=== PATIENT | male | born 1965 | race Caucasian/White ===

== ENCOUNTER 2020-06-12 06:19 | Day surgery (SDC) | payer BC, OTHER ==
[~2020-06-12] VITALS: Ht 190.5 cm; Wt 100.0 kg
[~2020-06-12 06:19] MED LIST: FLONASE ALLERG9.9 ML NAS
[2020-06-12] MEDS ORDERED: LOSARTAN POTASS50 MG PO (06:38)
--- NOTE | 2020-06-12 07:57 | NUR ---
06/12/20 [address] 0754-PATIENT ARRIVED TO PACU ON 2L NC RR EVEN. PATIENT AWAKE DROWSY DENIES PAIN OR NAUSEA. LAYING LEFT LATERAL. ABDOMEN SOFT ENCOURAGED TO PASS GAS. IVF INFUSING. PATIENT DOZES TO SLEEP.
--- NOTE | 2020-06-12 08:40 | NUR ---
PT ALERT, ORIENTED AND SUPPORTED BY HIS JONNIE. PT IS HERE FOR HIS FIRST SCOPE, PREP WAS RATHER UNEVENTFUL FOR HIM. BECAUSE OF FAMILY HISTORY PT HAS DECIDED TO BE PROACTIVE IN HIS HEALTH CARE. ALL QUESTIONS ASKED ANSWERED. HAD PRAYER WTH PT, JONNIE WILL WAIT IN RM. WILL FOLLOW NEEDED
--- NOTE | 2020-06-13 07:43 | OR ---
[facility] [address], [place] [address] Signed DATE OF OPERATION: 06/12/2020 SURGEON: Faith Azar MD PREOPERATIVE DIAGNOSIS: Screening. POSTOPERATIVE DIAGNOSES: 1. 3 mm lesion on ileocecal valve. 2. 6 mm pedunculated polyp at 22 cm (sigmoid colon). 3. 10 mm pedunculated polyp at 18 cm/rectum (snare). PROCEDURE: Colonoscopy snare polypectomy and hot biopsy. ESTIMATED BLOOD LOSS: None. INDICATIONS: Hermelindo is a 54-year-old gentleman asked to see me for his initial screening colonoscopy. He has no lower GI complaints. There is no family history of colon cancer or polyps. In the office, I gave Hermelindo a pamphlet on colonoscopy. We had reviewed the nature of the test. He understands there is risk including, but not limited to gas bloating, crampy abdominal pain, bleeding, perforation requiring surgery, and missed diagnosis. We also reviewed the need for IV conscious sedation. He had expressed understanding and wished to proceed. PROCEDURE NOTE: Hermelindo was taken into our endoscopy suite and placed in the left lateral decubitus position. He was given a total of 7 mg of Versed and 100 mcg of fentanyl to cover the case. We did notice that he woke up quickly on two occasions. He does consume two or three beers every day after work. Nevertheless, he was comfortable throughout the procedure. A digital rectal exam was performed and this was unremarkable. The adult colonoscope had been introduced and advanced all around into the cecum under direct visualization of camera without difficulty. His prep was quite excellent. We could easily see the appendiceal orifice and the ileocecal valve. We took pictures throughout for photodocumentation. He had a 3 mm light-colored sessile lesion on the ileocecal valve. It was easily removed and destroyed completely with hot biopsy forceps. The scope was then slowly withdrawn. There was no diverticulosis. We used our hot biopsy forceps to remove the polyp up at 22 cm. We then used our snare to remove the polyp at Electronically Signed By: FAITH AZAR MD 06/13/20 0743 PATIENT NAME: HERMELINDO GALINDO OPERATIVE REPORT DATE OF : 65 REPORT #: [id number] PHYSICIAN: FAITH AZAR MD PCP: LEODAN EDWARDS MD REPORT IS CONFIDENTIAL AND NOT TO BE RELEASED WITHOUT AUTHORIZATION [facility] [address] [place] [id number] Signed 18 cm and suctioned it on the scope and removed it for pathologic review. The rest of the rectum was unremarkable. Upon retroflexion of scope, there was no additional pathology noted above the anal canal. After this, the gas was suctioned out. The colonoscope removed. Hermelindo tolerated the procedure quite well. RECOMMENDATIONS: I will see Hermelindo back in my office in 7 to 14 days to review his results. Faith Azar MD ALB/MODL /[id number] cc: MD Leodan Herrera MD Copies: FAITH AZAR MD, ROBERT D DMD ~ Electronically Signed By: FAITH AZAR MD 06/13/20 0743 PATIENT NAME: HERMELINDO GALINDO OPERATIVE REPORT DATE OF : 65 REPORT #: [id number] PHYSICIAN: FAITH AZAR MD PCP: LEODAN EDWARDS MD REPORT IS CONFIDENTIAL AND NOT TO BE RELEASED WITHOUT AUTHORIZATION
--- NOTE | 2020-06-13 17:04 | PATH ---
[facility] [address], [place] [address] Signed SPECIMEN(S): A ILEOCECAL VALVE POLYP SPECIMEN(S): B COLON POLYP 22 CM SPECIMEN(S): C RECTAL POLYP 18 CM SPECIMEN SOURCE: A. ILEOCECAL VALVE POLYP B. COLON POLYP 22 CM C. RECTAL POLYP 18 CM CLINICAL HISTORY: Screening. Post op: Polyps x 3. Colonoscopy. MICROSCOPIC DESCRIPTION: Histologic sections of all submitted blocks are examined by light microscopy. These findings, together with the gross examination, support the pathologic diagnosis. FINAL PATHOLOGIC DIAGNOSIS: A. Colon, ileocecal valve polyp, polypectomy: - Tubular adenoma. - Negative for high-grade dysplasia or malignancy. B. Colon, polyp at 22 cm, polypectomy: - Fragments of colonic mucosa with focal perineurioma and hyperplastic mucosa changes. - Negative for dysplasia or malignancy. C. Rectum, polyp at 28 cm, polypectomy: - Tubular adenoma. - Negative for high-grade dysplasia or malignancy. NAL:cml:C2NR GROSS DESCRIPTION: Three specimens are received in three containers, labeled "CS." A. The specimen, labeled "CS, ileocecal valve polyp," is received in formalin and consists of one romero soft tissue fragment that measures 0.2 cm in greatest dimension. The specimen is entirely submitted in cassette (A1). B. The specimen, labeled "CS, colon polyp at 22 cm," is received in formalin and consists of two romero soft tissue fragments that measure 0.4-0.6 cm in greatest dimension. The specimen is entirely submitted in cassette (B1). C. The specimen, labeled "CS, rectal polyp at 18 cm," is received in formalin and consists of one romero soft tissue fragment that measures 1.2 cm in greatest PATIENT NAME: IRA GALINDO PATHOLOGY DATE OF : 65 REPORT #: [id number] PHYSICIAN: [facility] PCP: LEODAN EDWARDS MD REPORT IS CONFIDENTIAL AND NOT TO BE RELEASED WITHOUT AUTHORIZATION [facility] [address], [place] [address] Signed dimension. The specimen is serial sectioned and entirely submitted in cassette (C1). JS (under the direct supervision of a pathologist) The Gross Description was prepared using a voice recognition system. The report was reviewed for accuracy; however, sound-alike word errors, addition and/or deletions may occur. If there is any question about this report, please contact Client Services. PERFORMING LABORATORY: The technical component was performed by [facility] [address] (Components Engineer: Lina Silva MD; CLIA# [id number]). [facility] [address] [address] (CLIA# [id number]). Diagnostician: Veronica Casas MD Pathologist Electronically Signed 06/13/2020 Copies: ~ PATIENT NAME: IRA GALINDO PATHOLOGY DATE OF : 65 REPORT #: [id number] PHYSICIAN: CARLOTTA BERNSTEIN PCP: LEODAN EDWARDS MD REPORT IS CONFIDENTIAL AND NOT TO BE RELEASED WITHOUT AUTHORIZATION
== END 2020-06-12 08:30 | disposition home or self-care (01) ==
LOC: OPS 06:19 → DS 06:45 → OPS 06:45
PROVIDERS: ATTEND Colon & Rectal Surgery
PROC: 0DBE8ZZ Excision of Large Intestine, Via Natural or Artificial Opening Endoscopic (ICD-10-PCS; 2020-06-12)
PROC: 0DBC8ZZ Excision of Ileocecal Valve, Via Natural or Artificial Opening Endoscopic (ICD-10-PCS; principal; 2020-06-12 06:45)
DX: Z12.11 Encounter for screening for malignant neoplasm of colon (principal); D12.0 Benign neoplasm of cecum; K63.5 Polyp of colon; D12.8 Benign neoplasm of rectum; I10 Essential (primary) hypertension; F17.220 Nicotine dependence, chewing tobacco, uncomplicated
CPT/HCPCS: G0500; J2250; J3010; J7121